=== PATIENT | male | born 1960 | race Caucasian/White ===

== ENCOUNTER 2019-02-04 15:28 | Emergency (ER) | payer OTHER ==
--- NOTE | 2019-02-04 15:46 | PDOC ---
History of Present Illness <Rashad Bae - Last Filed: 02/04/19 17:20> - General History Source: Patient Exam Limitations: No Limitations - History of Present Illness Initial Comments: 02/04/19 16:16 Abudllahi Ly is a 59yo previously healthy male presenting with hematuria. 2hrs ago, he urinated and noticed that the color of his urine was an opaque purple/ brown. No changes in medication. Denies fever, nausea, abdominal pain, urinary urgency/frequency/hesitancy/pain, or bowel movement changes. He has been exercising more frequently in the last few days. Presented to urgent clinic, urinalysis positive for leukocyte esterase, nitrate , ketones, protein, elevated spec gravity 1.030. Subsequently referred here to get CMP, further eval. <Reji Amador - Last Filed: 02/04/19 17:28> - General Chief Complaint: Hematuria Stated Complaint: BLOOD IN URINE Time Seen by Provider: 02/04/19 15:45 Past History <Rashad Bae - Last Filed: 02/04/19 17:20> - Past Medical History COPD: No GI Disorders: No Disorders: No Kidney Stones: No Other medical history: DENIES - Surgical History Abdominal Surgery: No Appendectomy: No Cholecystectomy: No Gastric Stapling: No GI Surgery: No - Suicide/Smoking/Psychosocial Hx Smoking History: Never smoked Information on smoking cessation initiated: No Hx Alcohol Use: Yes (SOCIAL) Drug/Substance Use Hx: No <Reji Amador - Last Filed: 02/04/19 17:28> - Past Medical History Allergies/Adverse Reactions: Allergies Allergy/AdvReac Type Severity Reaction Status Date / Time No Known Allergies Allergy Unverified 02/04/19 15:29 Home Medications: Ambulatory Orders Aspirin 81 mg PO HS 02/04/19 Review of Systems - Review of Systems Constitutional: No: Chills, Fever, Night Sweats, Weakness HEENTM: No: Eye Pain, Nose Pain, Throat Pain Respiratory: No: Cough, Shortness of Breath Cardiac (ROS): No: Chest Pain, Edema, Palpitations, Syncope ABD/GI: No: Abdominal Distended, Constipated, Diarrhea, Nausea, Vomiting, Abdominal cramping : Yes: Hematuria. No: Burning, Dysuria, Discharge, Frequency, Flank Pain, Incontinence, Pain, Urgency, Testicular Mass, Testicular Swelling, Lesions, Testicular Pain Musculoskeletal: No: Gout, Joint Pain, Joint Swelling Integumentary: No: Bruising, Erythema, Flushing Neurological: No: Headache, Numbness, Paresthesia, Seizure Endocrine: No: Excessive Sweating, Flushing, Increased Thirst, Increased Urine <Reji Amador - Last Filed: 02/04/19 17:28> *Physical Exam - Vital Signs Last Vital Signs Temp Pulse Resp BP Pulse Ox 98.2 F 53 L 20 112/73 100 02/04/19 15:29 02/04/19 17:13 02/04/19 15:29 02/04/19 17:13 02/04/19 17:13 <Rashad Bae - Last Filed: 02/04/19 17:20> - Vital Signs Last Vital Signs Temp Pulse Resp BP Pulse Ox 98.2 F 64 20 121/80 100 02/04/19 15:29 02/04/19 15:29 02/04/19 15:29 02/04/19 15:29 02/04/19 15:29 - Physical Exam General Appearance: Yes: Nourished, Appropriately Dressed HEENT: positive: AGUSTÍN, Normal Voice. negative: Nasal Congestion, Rhinorrhea Respiratory/Chest: positive: Lungs Clear, Normal Breath Sounds. negative: Chest Tender, Respiratory Distress, Crackles, Rales, Rhonchi, Stridor, Wheezing Cardiovascular: positive: Regular Rhythm, Regular Rate, S1, S2. negative: Edema , Murmur Gastrointestinal/Abdominal: positive: Normal Bowel Sounds, Flat, Soft. negative : Tender, Organomegaly, Guarding, Rebound, Hernia, Mass Male Genitalia: positive: normal genitalia. negative: discharge, testicular tenderness, testicular mass, epididymus tender, hernia Neurologic: positive: Fully Oriented, Alert, Normal Mood/Affect, Normal Response , Responsive. negative: Confused, Disoriented <Reji Amador - Last Filed: 02/04/19 17:28> ED Treatment Course - LABORATORY CBC & Chemistry Diagram: 02/04/19 16:16 02/04/19 16:16 - ADDITIONAL ORDERS Additional order review: Laboratory Results 02/04/19 02/04/19 16:16 16:16 Sodium 137 Potassium 3.8 Chloride 103 Carbon Dioxide 28 Anion Gap 6 L BUN 25.0 H Creatinine 0.8 Est GFR (CKD-EPI)AfAm 112.53 Est GFR (CKD-EPI)NonAf 97.10 Random Glucose 105 Calcium 9.6 Total Bilirubin 1.1 H AST 37 ALT 25 Alkaline Phosphatase 40 L Creatine Kinase 402 H Total Protein 7.0 Albumin 4.3 Urine Color Yellow Urine Appearance Slightly Urine pH 5.5 Urine Protein 2+ H Urine Glucose (UA) Negative Urine Ketones Trace Urine Blood 3+ H Urine Nitrite Negative Urine Bilirubin Negative Urine Urobilinogen 0.2 Ur Leukocyte Esterase Negative Urine RBC 40-60 Urine WBC 0-2 Ur Transition Epith Cell Few Urine Bacteria Few Urine Yeast Few 02/04/19 16:16 RBC 4.63 MCV 93.1 MCHC 33.0 RDW 12.5 MPV 8.9 Neutrophils % 76.1 Lymphocytes % 12.9 Monocytes % 9.4 Eosinophils % 0.9 Basophils % 0.7 - Medications Given in the ED: ED Medications Discontinued Medications Generic Name Dose Route Start Last Admin Trade Name Freq PRN Reason Stop Dose Admin Sodium Chloride 1,000 ml 02/04/19 16:13 02/04/19 16:17 Normal Saline - IV 02/04/19 16:14 1,000 ml ONCE ONE Administration Sodium Chloride 1,000 ml 02/04/19 16:38 02/04/19 16:40 Normal Saline - IV 02/04/19 16:39 1,000 ml ONCE ONE Administration <Rashad Bae - Last Filed: 02/04/19 17:20> - LABORATORY CBC & Chemistry Diagram: 02/04/19 16:16 02/04/19 16:16 <Reji Amador - Last Filed: 02/04/19 17:28> Medical Decision Making - Medical Decision Making 02/04/19 16:14 Ordered CBC, CMP, CK, UA w cx 2L NS for dehydration Abdullahi Ly is a 59yo previously healthy male presenting with hematuria. Likely due to rhabdomyolysis based on increased exercise, elevated CK. No sign of UTI on urinalysis. Less likely BPH and kidney stone d/t absence of urinary symptoms, normal prostate exam 6mo ago. Given 2L NS for rehydration, discharged home. <Reji Amador - Last Filed: 02/04/19 17:28> *DC/Admit/Observation/Transfer <Rashad Bae - Last Filed: 02/04/19 17:20> <Reji Amador - Last Filed: 02/04/19 17:28> Diagnosis at time of Disposition: Gross hematuria Hematuria Qualifiers: Hematuria type: asymptomatic microscopic Qualified Code(s): R31.21 - Asymptomatic microscopic hematuria - Discharge Dispostion Disposition: HOME Condition at time of disposition: Improved - Referrals Referrals: Alice Regan MD [Primary Care Provider] - Jose Hoover MD [Non Staff, Medical] - - Patient Instructions Printed Discharge Instructions: DI for Hematuria Additional Instructions: You were seen in the ED for bloody urine. You were given fluids for rehydration. Your labs showed an elevated CK value which indicates increased muscle breakdown. No sign of infection. Please follow up with your primary care doctor and urologist regarding this ED visit. Come back to the ED if you have worsening abdominal pain, fever, or vomiting - Post Discharge Activity
[2019-02-04 16:09] VITALS: TEMP 98.2; BMI 21.8
[2019-02-04] MEDS ORDERED: SODIUM CHLORIDE 0.9% 500 ML INFUS.BAG IV ONE ×2 (16:13→16:38)
[2019-02-04 16:27] LABS: BASO % 0.7 % (0-2.0); EOS % 0.9 % (0-4.5); HEMATOCRIT 43.1 % (35.4-49); HEMOGLOBIN 14.2 GM/dl (11.7-16.9); LYMPH % 12.9 % (8-40); MCH 30.7 pg (25.7-33.7); MEAN CELL VOLUME 93.1 fl (80-96); MEAN PLT VOLUME 8.9 fl (7.5-11.1); MONO % 9.4 % (3.8-10.2); NEUT % 76.1 % (42.8-82.8); PLATELET COUNT 228 K/MM3 (134-434); RBC 4.63 M/mm3 (4.00-5.60); RDW 12.5 % (11.9-15.9); WHITE BLOOD COUNT 6.8 K/mm3 (4.0-10.8)
[2019-02-04 16:34] LABS: EPITHELIAL CELLS FEW /hpf
[2019-02-04 16:41] LABS: ALBUMIN 4.3 g/dl (3.4-5.0); BILIRUBIN,TOTAL 1.1 mg/dl (0.2-1); CALCIUM 9.6 mg/dl (8.5-10); CREATININE 0.8 mg/dl (0.55-1.3); POTASSIUM 3.8 mmol/L (3.5-5.1)
[2019-02-04 17:13] VITALS: BP 112/73; PULSE 53
--- NOTE | 2019-02-04 17:18 | PDOC ---
Attending Attestation - Resident Resident Name: Perry,Reji - ED Attending Attestation I have performed the following: I have examined & evaluated the patient, The case was reviewed & discussed with the resident, I agree w/resident's findings & plan - HPI HPI: 02/04/19 17:09 Painless hematuria today, already clearing upon arrival to ED. Was out in the heat, ran 8 miles yesterday and today, a bit more than usual but not that much more. Noted acute dark urine today, went to [facility] where they sent him to the ED. No kidney stone type pain or pain at all. No dysuria or frequency. No fever or chills. Earlier urine was a dark purple color, then rita upon urinating after ED arrival, now light yellow to clear prior to ED discharge after 1 L NS bolus. Gets regular eval, last a few months ago, nl digital exam, nl PSA per patient report. Reason for this is father with hx of prostate CA in his 70's. - Physicial Exam PE: 02/04/19 17:12 appears well Last Vital Signs Temp Pulse Resp BP Pulse Ox 98.2 F 64 20 121/80 100 02/04/19 15:29 02/04/19 15:29 02/04/19 15:29 02/04/19 15:29 02/04/19 15:29 conj clear heart and lungs nl abd soft NT, bladder NT, ND nl extrem nl - Medical Decision Making 02/04/19 17:13 CBC nl, CK minimally elevated to 402, UA without signs of infection, but positve hematuria and positive RBC without WBC. Impression: minimal muscle breakdown by CK assay likely painless hematuria in setting of exercise and dehydration in the heat, already clearing rapidly with minimal fluids in the ED advised to continue fluids at home, avoid overexertion and dehydration in the heat most importantly, advised to have repeat urinalysis in the next week to assess for resolution of the hematuria and for further workup if persistent patient states, "I understand the importance of repeat urine testing to make sure there is nothing serious. I already have an appointment scheduled next week with my primary doctor and will bring all of the results you gave me and the recommendation for follow up urine testing for blood to the doctor." Laboratory Results - last 24 hr 02/04/19 02/04/19 02/04/19 16:16 16:16 16:16 WBC 6.8 RBC 4.63 Hgb 14.2 Hct 43.1 MCV 93.1 MCH 30.7 MCHC 33.0 RDW 12.5 Plt Count 228 MPV 8.9 Absolute Neuts (auto) 5.2 Neutrophils % 76.1 Lymphocytes % 12.9 Monocytes % 9.4 Eosinophils % 0.9 Basophils % 0.7 Sodium 137 Potassium 3.8 Chloride 103 Carbon Dioxide 28 Anion Gap 6 L BUN 25.0 H Creatinine 0.8 Est GFR (CKD-EPI)AfAm 112.53 Est GFR (CKD-EPI)NonAf 97.10 Random Glucose 105 Calcium 9.6 Total Bilirubin 1.1 H AST 37 ALT 25 Alkaline Phosphatase 40 L Creatine Kinase 402 H Total Protein 7.0 Albumin 4.3 Urine Color Yellow Urine Appearance Slightly Urine pH 5.5 Urine Protein 2+ H Urine Glucose (UA) Negative Urine Ketones Trace Urine Blood 3+ H Urine Nitrite Negative Urine Bilirubin Negative Urine Urobilinogen 0.2 Ur Leukocyte Esterase Negative Urine RBC 40-60 Urine WBC 0-2 Ur Transition Epith Cell Few Urine Bacteria Few Urine Yeast Few
== END 2019-02-04 17:15 | disposition home or self-care (01) ==
LOC: FER 15:28
PROC: 3E0337Z Introduction of Electrolytic and Water Balance Substance into Peripheral Vein, Percutaneous Approach (ICD-10-PCS; principal; 2019-02-04)
DX: R31.21 Asymptomatic microscopic hematuria (principal)
CPT/HCPCS: 36415; 80053; 81003; 81015; 82550; 82553; 85025; 87086; 87186; 99282-25

== ENCOUNTER 2019-09-24 18:58 | Emergency (ER) | payer OTHER ==
[2019-09-24 19:09] VITALS: BP 112/71; PULSE 60; TEMP 98.2; BMI 22.8
--- NOTE | 2019-09-24 20:05 | PDOC ---
Documentation entered by Tigist Mack SCRIBE, acting as scribe for Bird Dexter MD. Bird Dexter MD: This documentation has been prepared by the Martina martínez Nirvannie, SCRIBE, under my direction and personally reviewed by me in its entirety. I confirm that the documentation accurately reflects all work, treatment, procedures, and medical decision making performed by me. History of Present Illness - General Chief Complaint: Injury Stated Complaint: RIGHT FOOT INJURY History Source: Patient Exam Limitations: No Limitations - History of Present Illness Initial Comments: 09/24/19 19:39 HPI: The patient is a 59 year old male, with no significant past medical history, who presents to the emergency department s/p stubbing his right foot with right 4th and 5th toe pain. As per patient, he was ambulating at which time he stubbed his foot on the bedpost. He notes pain and swelling to the right 4th and 5th toes. He notes mild pain with ambulation. He denies any changes in strength or sensation. He denies any recent fevers, chills, headache or dizziness. He denies any recent nausea, vomit, diarrhea or constipation. He denies any recent chest pain or shortness of breath. He denies any recent dysuria, frequency, urgency or hematuria. PAST MEDICAL HISTORY: no significant history PAST SURGICAL HISTORY: no significant history FAMILY HISTORY: no pertinent history SOCIAL HISTORY: Pt lives with family and is employed. MEDICATIONS: reviewed ALLERGIES: As per nursing notes ROS: General: No fevers or chills, no weakness, no weight loss HEENT: No change in vision. No sore throat,. No ear pain CardioVascular: No chest pain or shortness of breath Respiratory:No cough, or wheezing. Gastrointestinal: no nausea, vomiting, diarrhea or constipation, No rectal bleeding Genitourinary: No dysuria, hematuria, or frequency Musculoskeletal: +Right fourth and 5th toe pain with ecchymosis. No joint or muscle pain or swelling Neurologic: No headache, vertigo, dizziness or loss of consciousness Psychiatric: nor depression Skin: No rashes or easy bruising Endocrine: no increased thirst or abnormal weight change Allergic: no skin or latex allergy All other systems reviewed and normal Physical Exam: GENERAL: The patient is awake, alert, and fully oriented, in no acute distress. HEAD: Normal with no signs of trauma. EYES: Pupils equal, round and reactive to light, extraocular movements intact, sclera anicteric, conjunctiva clear. EXTREMITIES: +Swelling to the base of the right 4th and 5th toes with ecchymosis to the interdigital spacing and mid ecchymosis of the dorsum of the foot just prior to the 3rd, 4th, and 5th toes. No bony tenderness of the toes and foot. NEUROLOGICAL: Normal speech. PSYCH: Normal mood, normal affect. SKIN: Warm, Dry, normal turgor, no rashes or lesions noted. 09/24/19 20:02 X-ray shows nondisplaced fracture of the fifth toe Assessment and plan: This is a 59-year-old male who stubbed his toe yesterday. Patient comes in complaining of pain and swelling with some ecchymosis to the area. Patient's x-ray was positive for a nondisplaced fracture of the fifth toe. Patient toe kayla taped given a cast shoe and discharged. Past History - Past Medical History Allergies/Adverse Reactions: Allergies Allergy/AdvReac Type Severity Reaction Status Date / Time No Known Allergies Allergy Verified 09/24/19 19:00 Home Medications: Ambulatory Orders NK [No Known Home Medication] 09/24/19 COPD: No GI Disorders: No Disorders: No Kidney Stones: No - Surgical History Abdominal Surgery: No Appendectomy: No Cholecystectomy: No Gastric Stapling: No GI Surgery: No - Psycho Social/Smoking Cessation Hx Smoking History: Never smoked Have you smoked in the past 12 months: No Information on smoking cessation initiated: No Hx Alcohol Use: No Drug/Substance Use Hx: No *Physical Exam - Vital Signs Last Vital Signs Temp Pulse Resp BP Pulse Ox 98.2 F 60 18 112/71 98 09/24/19 18:58 09/24/19 18:58 09/24/19 18:58 09/24/19 18:58 09/24/19 18:58 ED Treatment Course - RADIOLOGY Radiology Studies Ordered: Category Date Time Status TOE(S) RIGHT [RAD] Stat Radiology 09/24/19 19:29 Taken Discharge - Discharge Information Problems reviewed: Yes Clinical Impression/Diagnosis: Toe fracture, right Qualifiers: Encounter type: initial encounter Toe: lesser toe Fracture type: closed Phalanx : proximal Fracture alignment: nondisplaced Qualified Code(s): S92.514A - Nondisplaced fracture of proximal phalanx of right lesser toe(s), initial encounter for closed fracture Condition: Stable - Admission No - Follow up/Referral Referrals: Alice Regan MD [Primary Care Provider] - - Patient Discharge Instructions Additional Instructions: Your x-ray shows that you broke your pinky toe. The treatment for that is kayla tape it to the toe next to it and wear a comfortable shoe.. Tylenol or Motrin for pain. Return to the emergency department immediately with ANY new, persistent or worsening symptoms. Continue any medications as previously prescribed by your physician. You should follow up with your primary doctor as soon as possible regarding today's emergency department visit. . Please make sure your doctor reviews the results of your emergency evaluation. Thank you for coming to the Emergency Department today for your care. It was a pleasure to see you today. Please note that your evaluation is INCOMPLETE until you follow-up with your doctor. - Post Discharge Activity
== END 2019-09-24 20:15 | disposition home or self-care (01) ==
LOC: FER 18:58
PROC: 2W3UXYZ Immobilization of Right Toe using Other Device (ICD-10-PCS; principal; 2019-09-24)
DX: S92.514A Nondisplaced fracture of proximal phalanx of right lesser toe(s), initial encounter for closed fracture (principal); W22.01XA Walked into wall, initial encounter; Y93.89 Activity, other specified; Y92.009 Unspecified place in unspecified non-institutional (private) residence as the place of occurrence of the external cause
CPT/HCPCS: 73660-TC-FY; 99283-25

== ENCOUNTER 2021-03-06 22:43 | Emergency (ER) | payer OTHER ==
[2021-03-06 23:16] VITALS: BP 126/81; PULSE 60; TEMP 98.2; BMI 23.1
[2021-03-07] MEDS ORDERED: diazePAM 2 MG TABLET PO ONE (00:34)
[2021-03-07] MEDS ORDERED: MAG HYDROX/AL HYDROX/SIMETH 30 ML UNIT-DOSE CUP PO ONE (00:35)
[2021-03-07] MEDS ORDERED: diazePAM 2 MG TABLET ONE (00:58)
[2021-03-07] MEDS ORDERED: MAG HYDROX/AL HYDROX/SIMETH 30 ML UNIT-DOSE CUP ONE (00:58)
[2021-03-07 01:01] LABS: BASO % 0.5 % (0-2.0); EOS % 1.9 % (0-4.5); HEMATOCRIT 37.6 % (35.4-49); HEMOGLOBIN 13.2 GM/dL (11.7-16.9); MCH 31.8 pg (25.7-33.7); MCHC 35.3 g/dl (32.0-35.9); MEAN CELL VOLUME 90.1 fl (80-96); MEAN PLT VOLUME 8.6 fl (7.5-11.1); MONO % 11.4 % (3.8-10.2); NEUT % 72.2 % (42.8-82.8); PLATELET COUNT 212 10^3/uL (134-434); RBC 4.17 M/mm3 (4.00-5.60); RDW 13.1 % (11.9-15.9); WHITE BLOOD COUNT 7.5 K/mm3 (4.0-10.0)
[2021-03-07 01:19] LABS: CHLORIDE 106 mmol/L (98-107); SODIUM 141 mmol/L (136-145)
[2021-03-07 01:22] LABS: CALCIUM 8.8 mg/dL (8.5-10.1)
[2021-03-07 01:23] LABS: ALBUMIN 3.5 g/dl (3.4-5.0); ANION GAP 6 MMOL/L (8-16); BLOOD UREA NITROGEN 19.4 mg/dL (7-18); CO2 28 mmol/L (21-32); GLUCOSE,RANDOM 142 mg/dL (74-106)
[2021-03-07 01:26] LABS: CREATININE 1.1 mg/dL (0.55-1.3); SGOT/AST 13 U/L (15-37); SGPT/ALT 23 U/L (13-61)
[2021-03-07 01:27] LABS: BILIRUBIN,TOTAL 0.3 mg/dL (0.2-1); TOT PROT 6.6 g/dl (6.4-8.2)
[2021-03-07 01:29] LABS: ALK PHOS 51 U/L (45-117)
== END 2021-03-07 01:38 | disposition home or self-care (01) ==
LOC: FER 22:43
DX: R07.89 Other chest pain (principal)
CPT/HCPCS: 36415; 71045-TC-FY; 80053; 82550; 84484; 85025; 85379; 99285-25